=== PATIENT | female | born 1965 | race African-American/Black ===

== ENCOUNTER 2018-09-20 08:02 | Outpatient (CLI) | payer BC ==
--- NOTE | 2018-09-20 10:34 | BD ---
DEXA BONE DENSITY STUDY: HISTORY: Screening. Menopausal. LUMBAR SPINE BMD (g/cm2) T-SCORE L1 1.264 +2.5 L2 1.255 +2.1 L3 1.358 +2.5 L4 1.393 +3.0 TOTAL 1.323 +2.5 Within normal limits with no increased risk for fracture. LEFT HIP BMD (g/cm2) T-SCORE FEMORAL NECK 1.074 +2.0 TOTAL 1.197 +2.1 Within normal limits with no increased risk for fracture. IMPRESSION: FRAX score not reported because all T-scores are at or above -1.0. POS: ALIA
--- NOTE | 2018-09-21 15:32 | MMO ---
Bilateral MAMMO Bilat Screen [facility]. CLINICAL HISTORY: Patient is 53 years old and is seen for screening. The patient has no family history of breast cancer. The patient has no personal history of cancer. The patient has a history of left needle biopsy in 2010 - benign. VIEWS: The views performed were: bilateral craniocaudal with tomosynthesis and bilateral mediolateral oblique with tomosynthesis. FILMS COMPARED: The present examination has been compared to prior imaging studies performed at [facility] on 03/13/2014 and 03/27/2014. MAMMOGRAM FINDINGS: There are scattered fibroglandular densities. There are no suspicious masses, calcifications or areas of architectural distortion. IMPRESSION: THERE IS NO MAMMOGRAPHIC EVIDENCE OF MALIGNANCY. A ROUTINE FOLLOW-UP MAMMOGRAM IN 1 YEAR IS RECOMMENDED. THE RESULTS OF THIS EXAM WERE SENT TO THE PATIENT. ACR BI-RADS Category 1 - Negative MAMMOGRAPHY NOTE: 1. A negative mammogram report should not delay a biopsy if a dominant of clinically suspicious mass is present. 2. Approximately 10% to 15% of breast cancers are not detected by mammography. 3. Adenosis and dense breasts may obscure an underlying neoplasm.
== END 2018-09-20 08:03 | disposition home or self-care (01) ==
LOC: BICMAMMO 08:02
PROVIDERS: ATTEND Family Medicine
DX: Z12.31 Encounter for screening mammogram for malignant neoplasm of breast (principal); Z13.820 Encounter for screening for osteoporosis
CPT/HCPCS: 77063; 77067; 77080